=== PATIENT | male | born 1955 | race Caucasian/White ===

== ENCOUNTER → 2018-09-14 | Outpatient (REF) | payer MEDICARE ==
[~2018-09-14] MED LIST: AMLO-125 PO; CIP500 PO; HYDR12.558 PO; IBUP800T37 PO; LEVO75TA73 PO; LISI-374 PO; METO-231 PO; NONE NOW; PHENA100 PO; TAM4 PO
== END ==
LOC: ZZSENDIN 13:20
PROVIDERS: ATTEND Family Medicine
DX: Z12.5 Encounter for screening for malignant neoplasm of prostate (principal); E78.00 Pure hypercholesterolemia, unspecified
CPT/HCPCS: 82465; 83718; 84153; 84478